=== PATIENT | female | born 1980 | race Caucasian/White ===

== ENCOUNTER 2024-08-04 13:50 | Outpatient (CLI) | payer OTHER, SELFPAY | END 2024-08-04 13:51 | disposition home or self-care (01) | PROVIDERS: Visit Provider Obstetrics & Gynecology | DX: N95.1 Menopausal and female climacteric states (principal) | CPT/HCPCS: 80053; 82670; 83001; 84443 ==

== ENCOUNTER 2025-05-08 14:20 | Outpatient (CLI) | payer OTHER, SELFPAY | END 2025-05-08 14:21 | disposition home or self-care (01) | LOC: NFLDREF 05-14 15:19 | PROVIDERS: Visit Provider Obstetrics & Gynecology | DX: N95.1 Menopausal and female climacteric states (principal) | CPT/HCPCS: 80076 ==